=== PATIENT | female | born 1985 | race African-American/Black ===

== ENCOUNTER 2021-05-26 16:04 | Emergency (ER) | payer OTHER ==
[~2021-05-26] VITALS: Ht 167.6 cm; Wt 97.0 kg
[2021-05-26] MEDS ORDERED: ONDANSETRON HCL 4MG/2ML INJ IV STA (16:13)
[2021-05-26] MEDS ORDERED: SODIUM CHLORIDE 0.9% 1,000 ML IV ONE ×2 (16:15→17:15)
[2021-05-26 16:58] LABS: BASOPHILS % 0.4 % (0.0-2.0); EOSINOPHILS % 1.6 % (0.0-5.0); HEMATOCRIT. 37.9 % (36.0-48.0); HEMOGLOBIN. 12.5 g/dL (12.0-16.0); LYMPHOCYTES % 35.5 % (20.0-50.0); MEAN CORPUSCULAR HEMOGLOBIN 29.3 pg (28.0-32.0); MEAN CORPUSCULAR VOLUME 88.5 fL (81.0-99.0); MEAN PLATELET VOLUME 7.3 fl (7.4-10.4); MONOCYTES % 5.1 % (2.0-8.0); NEUTROPHILS % 57.4 % (40.0-76.0); PLATELET 288 x1000/uL (130-400); RED BLOOD CELL COUNT 4.28 mill/uL (4.2-5.4); RED CELL DISTRIBUTION WIDTH 12.9 % (11.6-14.6)
[2021-05-26 17:05] LABS: CHLORIDE 105 mEq/L (98-107)
[2021-05-26] MEDS ORDERED: METOCLOPRAMIDE HCL 10MG/2ML VIAL IV ONE (17:15)
[2021-05-26 20:08] LABS: CLARITY URINE CLOUDY (CLEAR); COLOR URINE YELLOW (YELLOW); KETONES URINE 1+ (NEGATIVE); LEUKOCYTE ESTERASE URINE NEGATIVE (NEGATIVE); NITRITE URINE NEGATIVE (NEGATIVE); OCCULT BLOOD URINE NEGATIVE (NEGATIVE); PH URINE 5.5 (4.5-8.0); PROTEIN URINE NEGATIVE (NEGATIVE); SPECIFIC GRAVITY URINE 1.028 (1.005-1.030); UROBILINOGEN URINE 0.2 E.U./dL (0.2-1.0)
[2021-05-26] MEDS ORDERED: METO5TAB86 MT (20:54)
[2021-05-26 21:26] VITALS: BP 133/66
== END 2021-05-26 21:31 | disposition home or self-care (01) ==
LOC: ER 16:04
DX: O21.0 Mild hyperemesis gravidarum (principal); O09.521 Supervision of elderly multigravida, first trimester; Z3A.01 Less than 8 weeks gestation of pregnancy
CPT/HCPCS: 36415; 76801; 76817; 80048; 81003; 84702; 85025; 86850; 86900; 86901; 93005; 96361; 96374; 96375; 99285; J2405; J2765; J7030

== ENCOUNTER 2021-06-14 10:22 | Emergency (ER) | payer OTHER ==
[~2021-06-14] VITALS: Ht 167.6 cm; Wt 98.0 kg
[~2021-06-14 10:22] MED LIST: METO5TAB86 MT
[2021-06-14 10:26] VITALS: BP 133/71
[2021-06-14] MEDS ORDERED: ONDANSETRON 4MG ODT PO ONE (10:45)
[2021-06-14 11:07] LABS: BASOPHILS % 0.6 % (0.0-2.0); EOSINOPHILS % 1.1 % (0.0-5.0); HEMATOCRIT. 35.4 % (36.0-48.0); LYMPHOCYTES % 27.3 % (20.0-50.0); MEAN CORPUSCULAR HEMOGLOBIN 29.4 pg (28.0-32.0); MEAN CORPUSCULAR VOLUME 86.7 fL (81.0-99.0); MONOCYTES % 5.6 % (2.0-8.0); NEUTROPHILS % 65.4 % (40.0-76.0); PLATELET 309 x1000/uL (130-400); RED BLOOD CELL COUNT 4.08 mill/uL (4.2-5.4); RED CELL DISTRIBUTION WIDTH 12.8 % (11.6-14.6)
[2021-06-14 11:11] LABS: CHLORIDE 106 mEq/L (98-107)
[2021-06-14 11:45] LABS: B-HCG QUANTITATIVE 171910 mIU/mL (<3)
[2021-06-14] MEDS ORDERED: LACTATED RINGERS 1,000 ML IV SCH ×2 (11:45)
[2021-06-14 13:15] LABS: CLARITY URINE CLOUDY (CLEAR); COLOR URINE YELLOW (YELLOW); KETONES URINE 1+ (NEGATIVE); LEUKOCYTE ESTERASE URINE NEGATIVE (NEGATIVE); NITRITE URINE NEGATIVE (NEGATIVE); OCCULT BLOOD URINE NEGATIVE (NEGATIVE); PROTEIN URINE TRACE (NEGATIVE); SPECIFIC GRAVITY URINE 1.029 (1.005-1.030)
[2021-06-14] MEDS ORDERED: CEPH500C2 MT (14:05)
== END 2021-06-14 14:25 | disposition home or self-care (01) ==
LOC: ER 10:35
DX: O21.0 Mild hyperemesis gravidarum (principal); O23.41 Unspecified infection of urinary tract in pregnancy, first trimester; N39.0 Urinary tract infection, site not specified; O09.521 Supervision of elderly multigravida, first trimester; Z3A.12 12 weeks gestation of pregnancy
CPT/HCPCS: 36415; 80053; 81003; 81025; 84702; 85025; 93005; 96360; 99284; Q0162

== ENCOUNTER 2021-08-27 06:07 | Emergency (ER) | payer OTHER, MEDICAID ==
[~2021-08-27] VITALS: Ht 167.6 cm; Wt 98.0 kg
[2021-08-27 06:09] VITALS: BP 135/81
[2021-08-27 06:42] LABS: BASOPHILS % 1.4 % (0.0-2.0); EOSINOPHILS % 3.7 % (0.0-5.0); HEMATOCRIT. 24.6 % (36.0-48.0); HEMOGLOBIN. 8.5 g/dL (12.0-16.0); LYMPHOCYTES % 35.6 % (20.0-50.0); MEAN CORPUSCULAR HEMOGLOBIN 30.6 pg (28.0-32.0); MEAN CORPUSCULAR VOLUME 88.1 fL (81.0-99.0); MEAN PLATELET VOLUME 7.2 fl (7.4-10.4); NEUTROPHILS % 53.3 % (40.0-76.0); PLATELET 249 x1000/uL (130-400); RED BLOOD CELL COUNT 2.79 mill/uL (4.2-5.4); RED CELL DISTRIBUTION WIDTH 14.2 % (11.6-14.6)
[2021-08-27 06:49] LABS: CHLORIDE 110 mEq/L (98-107)
[2021-08-27 07:00] LABS: B-HCG QUANTITATIVE 143 mIU/mL (<3)
[2021-08-27 07:42] LABS: CLARITY URINE CLOUDY (CLEAR); COLOR URINE YELLOW (YELLOW); KETONES URINE NEGATIVE (NEGATIVE); LEUKOCYTE ESTERASE URINE 1+ (NEGATIVE); NITRITE URINE NEGATIVE (NEGATIVE); OCCULT BLOOD URINE 3+ (NEGATIVE); PROTEIN URINE 1+ (NEGATIVE); SPECIFIC GRAVITY URINE 1.017 (1.005-1.030)
[2021-08-27] MEDS ORDERED: IOHEXOL-350 100 ML BOTTLE ONE (09:47)
== END 2021-08-27 10:49 | disposition home or self-care (01) ==
LOC: ER 06:07
DX: D64.9 Anemia, unspecified (principal); N93.8 Other specified abnormal uterine and vaginal bleeding
CPT/HCPCS: 36415; 71045; 71275; 80053; 81003; 83880; 84484; 84702; 85025; 85379; 86850; 86900; 86901; 93005; 99285; Q9967

== ENCOUNTER 2022-05-14 08:17 | Emergency (ER) | payer MEDICAID, OTHER ==
[~2022-05-14] VITALS: Ht 167.6 cm; Wt 95.0 kg
[2022-05-14 08:28] VITALS: BP 127/83
[2022-05-14 10:47] LABS: CLARITY URINE TURBID (CLEAR); COLOR URINE ORANGE (YELLOW); KETONES URINE TRACE (NEGATIVE); LEUKOCYTE ESTERASE URINE 1+ (NEGATIVE); NITRITE URINE NEGATIVE (NEGATIVE); OCCULT BLOOD URINE 3+ (NEGATIVE); PROTEIN URINE 4+ (NEGATIVE); UROBILINOGEN URINE 0.2 E.U./dL (0.2-1.0)
[2022-05-14] MEDS ORDERED: CEPH500C2 MT (11:06)
[2022-05-14] MEDS ORDERED: PYR200 MT (11:06)
== END 2022-05-14 11:17 | disposition home or self-care (01) ==
LOC: ER 08:17
DX: N30.00 Acute cystitis without hematuria (principal)
CPT/HCPCS: 81003; 99283

== ENCOUNTER 2024-03-09 20:22 | Emergency (ER) | payer SELFPAY ==
[~2024-03-09] VITALS: Ht 167.6 cm; Wt 93.0 kg
[~2024-03-09 20:22] MED LIST changes: +CEPH500C2 MT; -METO5TAB86 MT; +PYR200 MT
[2024-03-09 20:35] VITALS: O2SAT 100
[2024-03-09 20:43] VITALS: O2SAT 100
[2024-03-09 21:44] VITALS: BP 109/64; PULSE 65; RESP 20; TEMP 98.4
[2024-03-09] MEDS: KETOROLAC 30MG/ML VIAL IM ONE (21:44)
[2024-03-09] MEDS: ACETAMINOPHEN 325MG TABLET PO ONE (21:44)
[2024-03-09 22:14] LABS: EOSINOPHILS % 1.4 % (0.0-5.0); HEMATOCRIT. 37.9 % (36.0-48.0); HEMOGLOBIN. 12.4 g/dL (12.0-16.0); LYMPHOCYTES % 36.5 % (20.0-50.0); MEAN CORPUSCULAR HEMOGLOBIN 29.7 pg (28.0-32.0); MEAN CORPUSCULAR HGB CONC 32.8 g/dL (31.0-37.0); MEAN CORPUSCULAR VOLUME 90.6 fL (81.0-99.0); MONOCYTES % 4.4 % (2.0-8.0); NEUTROPHILS % 56.7 % (40.0-76.0); PLATELET 317 x1000/uL (130-400); RED BLOOD CELL COUNT 4.19 mill/uL (4.2-5.4); RED CELL DISTRIBUTION WIDTH 13.1 % (11.6-14.6); WHITE BLOOD COUNT 10.1 x1000/uL (4.5-11.0)
[2024-03-09 22:22] LABS: CHLORIDE 105 mEq/L (98-107); POTASSIUM 3.3 mEq/L (3.5-5.1); SODIUM 138 mEq/L (136-145)
[2024-03-09 22:23] LABS: CALCIUM 9.6 mg/dL (8.7-10.4); CARBON DIOXIDE 25 mEq/L (21-32)
[2024-03-09 22:28] LABS: CREATININE 1.1 mg/dL (0.6-1.0); GLUCOSE 72 mg/dL (70-105); UREA NITROGEN BLOOD 8 mg/dL (9-23)
[2024-03-09 22:30] LABS: ALANINE AMINOTRANSFERASE 13 IU/L (10-49); ASPARTATE AMINOTRANSFERASE 23 IU/L (<34); BILIRUBIN TOTAL 1.8 mg/dL (0.1-1.0); PROTEIN TOTAL 8.1 g/dL (6.0-8.3)
[2024-03-09 22:39] LABS: TROPONIN I HIGH SENSITIVITY < 4 ng/L (3.0-34)
== END 2024-03-09 23:47 | disposition home or self-care (01) ==
LOC: ER 20:22
DX: R07.89 Other chest pain (principal); E87.6 Hypokalemia
CPT/HCPCS: 99285; 71045; 80053; 81025; 85025; 85379; 84484; 36415; 93005; 96372; J1885